=== PATIENT | male | born 1950 | race Caucasian/White ===

== ENCOUNTER 2017-08-23 07:44 | Emergency (ER) | payer SELFPAY ==
[2017-08-23] MEDS: NITROGLYCERIN (SL) 0.4 MG TAB SL (08:19)
[2017-08-23] MEDS: NITROGLYCERIN 2% 1 GM OINT PKT TD (08:19)
[2017-08-23] MEDS: ASPIRIN 81 MG TAB PO (08:19)
[2017-08-23 08:39] LABS: ADD MAN DIFF? NO
[2017-08-23 08:41] LABS: BASOPHILS % 0.5 % (0.0-2.0); EOSINOPHILS # 0.2 10^3/ul (0.0-0.5); EOSINOPHILS % 2.5 % (0.0-7.0); HEMOGLOBIN 12.8 g/dl (14.0-18.0); LYMPHOCYTES # 2.1 10^3/ul (0.8-2.9); LYMPHOCYTES % 24.9 % (15.0-51.0); MEAN CORPUSCULAR HEMOGLOBIN 30.8 pg (29.0-33.0); MEAN CORPUSCULAR HGB CONC 33.7 g/dl (32.0-37.0); MEAN CORPUSCULAR VOLUME 91.3 fl (82.0-101.0); MEAN PLATELET VOLUME 10.8 fl (7.4-10.4); MONOCYTE # 0.8 10^3/ul (0.3-0.9); MONOCYTES % 9.4 % (0.0-11.0); NEUTROPHIL # 5.3 10^3/ul (1.6-7.5); NEUTROPHILS % 62.5 % (39.0-77.0); PLATELET COUNT 160 10^3/UL (140-415); RED BLOOD COUNT 4.16 10^6/ul (4.70-6.10); RED CELL DISTRIBUTION WIDTH 13.6 % (11.5-14.5)
[2017-08-23 08:41] LABS: WHITE BLOOD COUNT 8.4 10^3/ul (4.8-10.8)
[2017-08-23 08:59] LABS: SODIUM 143 mmol/L (135-144)
[2017-08-23 09:04] LABS: ANION GAP 12 (8-16); BLOOD UREA NITROGEN 23 mg/dl (7-20); CARBON DIOXIDE 28 mmol/L (21-31); CHLORIDE 107 mmol/L (97-110); CREATININE 0.83 mg/dl (0.61-1.24); GLUCOSE 73 mg/dl (70-220); POTASSIUM 3.7 mmol/L (3.5-5.1)
[2017-08-23 10:21] LABS: TROPONIN-I 0.017 ng/ml (0.00-0.12)
[2017-08-23 11:15] LABS: INR 2.49; PROTIME 27.6 Sec (11.9-14.9); PT RATIO 2.2
== END 2017-08-23 11:24 | disposition home or self-care (01) ==
LOC: E/R 07:44
DX: R07.9 Chest pain, unspecified (principal); I10 Essential (primary) hypertension
CPT/HCPCS: 36415; 71045; 80048; 84484; 85025; 85610; 93005; 99285-25